=== PATIENT | male | born 1990 | race Caucasian/White ===

== ENCOUNTER 2018-08-01 11:31 | Emergency (ER) | payer MEDICAID ==
[2018-08-01 11:35] VITALS: BP 111/70
[2018-08-01] MEDS ORDERED: predniSONE 20 MG TAB PO ONE (11:52)
[2018-08-01] MEDS ORDERED: FAMOTIDINE 20 MG TAB PO ONE (11:52)
[2018-08-01] MEDS ORDERED: diphenhydrAMINE 25 MG CAP PO ONE (11:52)
--- NOTE | 2018-08-01 11:58 | EDPHY ---
H & P Stated Complaint: bee sting to neck this am Time Seen by Provider: 08/01/18 11:46 HPI/ROS: CHIEF COMPLAINT: Bee sting to neck HISTORY OF PRESENT ILLNESS: 28-year-old male via private vehicle states that 9: 45 a.m. Today when he was biking to work a bee impacted him at his shirt collar line (approximately level of the jugular notch) and stung him. He has been itching the area . His colleagues recommend he go into the hospital for evaluation as he notes that 2 years ago when he was stung on his foot he had no immediate reaction but the next morning woke up and his foot was swollen. He has never experience systemic symptoms such as dyspnea, need for epinephrine, chest pain, vomiting, wheezing after bee sting. He currently denies these symptoms as well. He currently denies: Headache, dysphagia, odynophagia, chest pain, dyspnea, wheezing, tonsillar glossal enlargement, abdominal pain, nausea or vomiting. REVIEW OF SYSTEMS: 10 systems reviewed and negative with the exception of the elements mentioned in the history of present illness PAST MEDICAL & SURGICAL HISTORY: No history of anaphylaxis SOCIAL HISTORY: Nonsmoker PHYSICAL EXAM (Prior to examination, patient consented to physical exam, hands were washed and my usual and customary physical exam procedures followed) 1) GENERAL: Well-developed, well-nourished, alert and oriented. Appears to be in no acute distress. Appears comfortable, shakes my hand smiling. 2) HEAD: Normocephalic, atraumatic 3) HEENT: Pupils equal, round, reactive to light bilaterally. Sclera anicteric. Nasopharynx, oropharynx, clear, no lesions. Moist Mucous membranes. No tonsillar glossal enlargement. No abnormal voice. 4) NECK: Full range of motion, slight erythema in the jugular notch with no stinger visible, no crepitus. 5) LUNGS: Clear auscultation bilaterally, no wheezes, no rhonchi, no retractions. 6) HEART: Regular rate and rhythm, no murmur, no heave, no gallop. 7) ABDOMEN: No guarding, no rebound, no focal tenderness, negative McBurney's, negative Lang's, negative Rovsing's, negative peritoneal sign, 8) MUSCULOSKELETAL: Moving all extremities, no focal areas of tenderness, no obvious trauma. No peripheral edema or discoloration. 9) BACK: No CVA tenderness, no midline vertebral tenderness, no fluctuance, no step-off, no obvious trauma, no visual or palpable abnormality. 10) SKIN: No rash, no petechiae. 11) Psychiatric: Patient is oriented X 3, there is no agitation. DIFFERENTIAL DIAGNOSIS: In no particular order including but not limited to localized allergic reaction, urticaria, anaphylaxis - Personal History Current Tetanus/Diphtheria Vaccine: No Current Tetanus Diphtheria and Acellular Pertussis (TDAP): No - Medical/Surgical History Hx Asthma: No Hx Chronic Respiratory Disease: No Hx Diabetes: No Hx Cardiac Disease: No Hx Renal Disease: No Hx Cirrhosis: No Hx Alcoholism: No Hx HIV/AIDS: No Hx Splenectomy or Spleen Trauma: No Other PMH: denies - Social History Smoking Status: Never smoked Constitutional: Initial Vital Signs Temperature (C) 36.7 C 08/01/18 11:32 Heart Rate 72 08/01/18 11:32 Respiratory Rate 18 08/01/18 11:32 Blood Pressure 111/70 08/01/18 11:32 O2 Sat (%) 97 08/01/18 11:32 O2 Delivery Mode Room Air Allergies/Adverse Reactions: No Known Allergies Allergy (Unverified 08/01/18 11:32) Home Medications: Medication Instructions Recorded EPINEPHrine [Epipen 0.3 MG] 0.3 mg IM ONCE #2 syr 08/01/18 Medical Decision Making ED Course/Re-evaluation: 11:53 a.m.: This patient appears well, is asymptomatic at this time. Incident occurred 2 hr prior to my examining patient. He is essentially asymptomatic this time with the exception of localized itching. He is concerned noting that prior history of foot swelling after bee sting with no systemic disease. I suspect that prior incident was more than likely related to dependent edema without the patient having elevated his foot. At this time will provide H1 H2 blockers as well as dose of oral prednisone. I do not think that epinephrine indicated at this time. He has been informed of the risk of delayed reaction. He has been given my usual and customary allergic reaction precautions instructions and feels comfortable being discharged home. I think the patient has decision-making capacity. I saw this patient independently based on established practice protocols. Care of patient under supervision of secondary supervising physician Dr Mcguire . Departure - Departure Disposition: Home, Routine, Self-Care Clinical Impression: Bee sting Qualifiers: Encounter type: initial encounter Injury intent: undetermined intent Qualified Code(s): T63.444A - Toxic effect of venom of bees, undetermined, initial encounter Condition: Good Instructions: Insect Bite or Sting (ED) Additional Instructions: If you develop difficulty swallowing, difficulty breathing, abdominal pain, nausea vomiting or any other symptoms, call 911 Referrals: Yesica Bryant MD [Primary Care Provider] - 2-3 days, call for appt. Prescriptions: EPINEPHrine [Epipen 0.3 MG] 0.3 mg IM ONCE #2 syr
== END 2018-08-01 12:06 | disposition home or self-care (01) ==
DX: T63.441A Toxic effect of venom of bees, accidental (unintentional), initial encounter (principal)
CPT/HCPCS: J7512